=== PATIENT | female | born 1995 | race Caucasian/White ===

== ENCOUNTER 2019-09-27 19:23 | Emergency (ER) | payer SELFPAY ==
[2019-09-27 19:31] VITALS: BP 111/67; PULSE 100; RESP 15; TEMP 36.7; O2SAT 100
[2019-09-27 19:39] VITALS: BP 117/78; PULSE 96; RESP 20; O2SAT 100
[2019-09-27 20:44] VITALS: BP 106/66; PULSE 66; RESP 20; O2SAT 100
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
[2019-09-27] MEDS: ACETAMINOPHEN 325 MG TABLET 650 MG PO (21:25)
[2019-09-27 21:27] VITALS: BP 100/65; PULSE 90; RESP 20; O2SAT 100
== END 2019-09-27 21:38 | disposition home or self-care (01) ==
PROVIDERS: Emergency Provider Emergency Medicine
DX: O9A.211 Injury, poisoning and certain other consequences of external causes complicating pregnancy, first trimester (principal); S09.90XA Unspecified injury of head, initial encounter; Z3A.11 11 weeks gestation of pregnancy; V43.63XA Car passenger injured in collision with pick-up truck in traffic accident, initial encounter
CPT/HCPCS: 99282; A9270